=== PATIENT | male | born 1970 | race Caucasian/White ===

== ENCOUNTER 2020-01-02 06:29 | Emergency (ER) | payer MEDICAID, SELFPAY ==
[~2020-01-02] VITALS: Ht 170.2 cm; Wt 86.2 kg
[2020-01-02 06:31] VITALS: BP 129/76; Ht 170.2 cm; Wt 86.2 kg
== END 2020-01-02 07:02 | disposition home or self-care (01) ==
LOC: ED 06:29
DX: R50.9 Fever, unspecified (principal); R51 Headache; J02.9 Acute pharyngitis, unspecified; R05 Cough; J45.909 Unspecified asthma, uncomplicated; Z20.828 Contact with and (suspected) exposure to other viral communicable diseases
CPT/HCPCS: U0003-CS

== ENCOUNTER 2020-06-17 12:44 | Emergency (ER) | payer MEDICAID, SELFPAY ==
[~2020-06-17] VITALS: Ht 180.3 cm; Wt 81.6 kg
[2020-06-17 14:01] VITALS: BP 121/75; Ht 180.3 cm; Wt 81.6 kg
== END 2020-06-17 15:26 | disposition home or self-care (01) ==
LOC: ED 12:44
DX: J20.9 Acute bronchitis, unspecified (principal); J45.909 Unspecified asthma, uncomplicated; Z20.828 Contact with and (suspected) exposure to other viral communicable diseases
CPT/HCPCS: U0003